=== PATIENT | female | born 1990 | race Caucasian/White ===

== ENCOUNTER 2022-07-14 06:53 | Outpatient (CLI) | payer MEDICAID, SELFPAY ==
--- NOTE | 2022-07-14 07:13 | US_ITS ---
WS: [id number] EARLY OBSTETRICAL ULTRASOUND (<14 WEEKS). HISTORY: DATING COMPARISON: None available. Single intrauterine gestational sac is identified. Cardiac activity at 171 BPM. Brillion-rump length mega sures 3.9 cm which corresponds to a gestation of 10w5d. Normal-appearing yolk sac and amnion demonstr ated. No subchorionic hemorrhage. No free fluid. Ovaries are not identified. No adnexal mass. US/US OB <= 14 weeks fetus [id number] IMPRESSION: 1. Single intrauterine gestation of 10 weeks 5 days with an EDC of 02/04/2023. 2. Normal cardiac activity.
== END 2022-07-14 06:54 | disposition home or self-care (01) ==
LOC: RAD 06:53
PROVIDERS: Visit Provider Family Medicine
DX: Z36.87 Encounter for antenatal screening for uncertain dates (principal); Z3A.10 10 weeks gestation of pregnancy
CPT/HCPCS: 76801

== ENCOUNTER 2022-09-20 06:01 | Outpatient (CLI) | payer MEDICAID, SELFPAY ==
--- NOTE | 2022-09-20 | US_ITS ---
WS: [id number] OBSTETRICAL ULTRASOUND COMPLETE HISTORY: ANATOMY SCAN COMPARISON: 07/14/2022 Single intrauterine gestation in transverse presentation. head on maternal LEFT. Cervix is Closed and normal length. Cervical length is 4.7 cm. Normal amount of amniotic fluid surrounds the fetus. Placenta: Lateral and fundal. Placenta grade 1 Heart: 150 BPM. Four chambers are identified. RIGHT and LEFT outflow tracts are unremarkable. Anatomy: Intracranial structures and spine are normal. kidneys, stomach and urinary bladd er are unremarkable. Abdominal wall, three-vessel cord and cord insertion site are normal. 4 extremities are present. profile: Unremarkable. Gender: Female. measurements: BPD = 4.8 cm = 20w3d; HC = 17.9 cm = 20w3d; AC = 15.0 cm = 20w1d; FL = 3.4 cm = 20w5d; EFW: 355 g. Not available. Biometry is internally concordant. AGA by ultrasound: 20w3d VELASQUEZ by ultrasound: 02/04/2023 US/US OB >= 14 weeks fetus [id number] IMPRESSION: 1. Single intrauterine gestation of 20w3d with an VELASQUEZ of 02/04/2023. Appropria te growth since the first trimester ultrasound. 2. Unremarkable screening survey of anatomy.
== END 2022-09-20 06:02 | disposition home or self-care (01) ==
LOC: RAD 06:02
PROVIDERS: PCP Family Medicine; Visit Provider Family Medicine
DX: Z36.89 Encounter for other specified antenatal screening (principal); Z3A.20 20 weeks gestation of pregnancy
CPT/HCPCS: 76805

== ENCOUNTER 2023-01-19 03:39 | Inpatient (IN) | payer BC, MEDICAID, SELFPAY ==
[2023-01-19] VITALS (60 sets, daily range): BP systolic 103–216; BP diastolic 56–95; PULSE 72–136; RESP 15–18; TEMP 36.4–37.2; O2SAT 98–99; BMI 26.2
[2023-01-19 03:52] LABS: Basophils % 0.1 %; Eosinophils # 0.3 10^3/uL (0.0-0.8); Eosinophils % 3.2 %; Hemoglobin 11.9 g/dL (11.5-15.3); Lymphocytes # 1.9 10^3/uL (0.8-4.8); Lymphocytes % 23.1 %; Mean Corpuscular HGB Conc 33.1 g/dL (30.0-36.0); Mean Corpuscular Hemoglobin 29.9 pg (28.0-34.0); Mean Corpuscular Volume 90.5 fl (81-99); Mean Platelet Volume 9.4 fL (7.4-10.4); Monocytes # 0.7 10^3/uL (0.2-0.9); Monocytes % 8.4 %; Neutrophils # 5.28 10^3/uL (1.8-7.7); Neutrophils % 64.7 %; Nucleated Red Blood Cells % 0 %; Platelet Count 245 10^3/cmm (130-400); Red Blood Count 3.98 10^6/uL (4.1-5.3); White Blood Count 8.2 10^3/uL (4.0-10.0)
[2023-01-19] MEDS: lactated ringers 1,000 ML 999 ML IV ×3 (03:56→07:38)
--- NOTE | 2023-01-19 04:56 | ANES.PREANE2 ---
Pre-Anesthetic Assessment Height/Weight: Height 1.6 m Weight 67.132 kg Pulse Resp BP 100 17 108/77 01/19/23 03:45 01/19/23 03:25 01/19/23 03:45 Preop Diagnosis: Labor pain epidural Familial anesthetic complications: none Was Beta Erasmo taken within 24 hours: N/A Was Clonidine taken within 24 hours: N/A Social No alcohol and No tobacco Exam alert, oriented x 3, clear to auscultation bilaterally and regular rate & rhythm Airway Submandibular: within normal limits Cervical ROM: within normal limits Mallampati: Class II Dentition: full Pulmonary None reported CV/HEM Anemia None reported Hepatic None reported GI Gastroesophageal Reflux Disease Metabolic None reported Musc/skel None reported Neuropsych None reported Anesthetic Plan ASA status: 2 Anesthesia: Regional (specify below) Risk of > 500 ml blood loss (7ml/kg in children): No Medications/Allergies Allergies Allergy/AdvReac Type Severity Reaction Status Date / Time No Known Allergies Allergy Verified 01/19/23 04:30 Current Medications Generic Name Dose Route Start Last Admin Trade Name Freq PRN Reason Stop Dose Admin Lactated Ringer's 1,000 mls @ 999 mls/hr 01/19/23 03:25 01/19/23 03:56 Lactated Ringers IV 999 mls/hr .Q1H1M PRN Administration See label comments PFSH Anesthesia Female Reproductive History : 3 Data Anesthesia 01/19/23 03:40 Short CBC 01/19/23 Range/Units 03:40 WBC 8.2 (4.0-10.0) 10^3/uL Hgb 11.9 (11.5-15.3) g/dL Hct 36.0 L (37.0-47.0) % MCV 90.5 (81-99) fl Plt Count 245 (130-400) 10^3/cmm Neut % (Auto) 64.7 % Neut # (Auto) 5.28 (1.8-7.7) 10^3/uL Cardiac Studies: No Data to Display
--- NOTE | 2023-01-19 05:23 | P.ANES_ITS ---
Anesthesia Procedures Procedure/Date: 01/19/23 epidural Procedure Narrative: epidural complete, bolus given, epidural pump initiated with UKE OPERATOR education given, vitals taken during procedure and satisfactory throughout, patient admits to decrease pain, report of procedure to OB RN Epidural: Time Out Performed: Yes Consents Signed: Procedure Consent Consent: requested by attending/covering physician, from patient, risks and benefits reviewed and patient agrees to proceed Lumbar Level: L3-L4 Epidural position: sitting Epidural procedure: sterile prep of area, 1% lidocaine to numb the area (3 mL), 18 g needle, negative for paresthesia passed, neg for paresthesia, test dose given, 1.5% xylocaine 1:200k epi (5 mL), 0.2% Ropivacaine bolus ml (5 mL), placed PCEA, no systemic response, sterile dressing applied, L.U.D. no apparent complications and 0.2% Ropiavacaine @ mls/hr (13 mL/hr)
[2023-01-19] MEDS: dextrose 5%-lactated ringers 1,000 ML 125 ML IV (06:33)
--- NOTE | 2023-01-19 07:27 | P.HP_ITS ---
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 LOF started around 2am. She complained of mild contractions on admission. She has a history of a quick labor with her last and so came to hospital right away. She reports good movement, denies vaginal bleeding. care has been good starting in the first trimester. Present Details : 3 Para: 2 Labs Blood type OB HPI: A (+) positive Rubella: Immune RPR: Negative GBS: Negative HBsAG: Negative Other Lab Information: Antibody screen negative GC/Chlamydia negative UCx normal Hep C ab negative HIV negative 1hr GTT passed Genetic testing declined Due for repeat pap smear - pap smear January 2020 NILM Review of Systems Const: Denies: fever(s) or chills Resp: Denies: dyspnea or productive cough : Denies: genital lesions or vaginal bleeding Medications/Allergies Home Medications Medication Instructions Recorded Confirmed Last Taken Type 1+1 W/Iron 1 tab PO DAILY 01/19/23 01/19/23 1 Day Ago History ~01/18/23 aspirin 81 mg capsule 81 mg PO DAILY 01/19/23 01/19/23 1 Day Ago History ~01/18/23 ferrous sulfate 325 mg (65 mg 325 mg PO DAILY 01/19/23 01/19/23 1 Day Ago Hist ory iron) tablet (Iron (ferrous ~01/18/23 sulfate)) loratadine 10 mg PO DAILY 01/19/23 01/19/23 1 Day Ago History ~01/18/23 Allergies Allergy/AdvReac Type Severity Reaction Status Date / Time No Known Allergies Allergy Verified 01/19/23 04:30 History History History 3 Term 2 0 Miscarriages/Ectopic 0 Living Children 2 Vitals/I&O/Wt Last Vital Signs Temp 98.0 F 01/19/23 06:40 Pulse 102 H 01/19/23 07:22 Resp 17 01/19/23 03:25 BP 121/73 01/19/23 07:22 Pulse Ox 98 06/30/23 05:24 O2 Del Method Room Air 01/19/23 05:15 01/18/23 01/19/23 01/19/23 22:59 06:59 14:59 Intake Total 1000 / 1000 Output Total 375 / 375 Balance 625 / 625 Weight last 48 hrs Weight 148 lb Physical Exam Const: COMMON NORMALS: no acute distress, healthy appearing and alert Resp: COMMON NORMALS: normal respiratory effort, No retractions and clear to auscultation bilaterally Cardio: COMMON NORMALS: regular rate, regular rhythm, S1 normal heart sound present, S2 normal heart sound present and No murmurs present (Cardio) Extremity: OTHER: No pretibial edema, 1+ pitting edema of bilateral feet Urinary Catheter Management: Moran: Cath Placed During This Visit: yes Reason for Continuing Indwelling Catheter: Required Immobilization for Trauma or Surgery or Anesthesia Urinary Catheter Date of Insertion: 01/19/23 Urinary Catheter Time of Insertion: 05:55 Data 01/19/23 03:40 A&P Assessment and plan (1) Rupture of membranes with clear amniotic fluid: (2) Term : Plan 32 yo at 37w5d by 10wk US with PMHx pre-eclampsia presenting for ROM and contractions. Admit for labor. Category 1 FHT on admission. Routine CBC. May have epidural when desired. Expectant management. Attestations Medical Necessity Statement*: Deanne Kelley's hospital stay will require greater than 2 midnights for routine labor and delivery and care. Coding Level of Care Code Acute Code for Chg Fwd Diagnoses Rupture of membranes with clear amniotic fluid Term Z34.90
[2023-01-19] MEDS: hyDROXYzine 25 mg Capsule 50 MG PO (08:02)
[2023-01-19] MEDS: lidocaine 2% INJ 20 mL INJECTION (10:43)
--- NOTE | 2023-01-19 11:02 | P.PCNOB_ITS ---
Delivery Note: Date of delivery: January 19, 2023 Pre-delivery diagnoses: Term Spontaneous Rupture of Membranes Spontaneous labor Post-delivery diagnoses: Delivery of viable female Procedure: Spontaneous vaginal delivery Delivering Physician: Roz Browning DO Estimated blood loss (mL): 125 Pre-Delivery Course: Admitted with SROM at home at approximately 2 AM on 01/19/2023 with contractions starting shortly after. Admitted with SVE 370/-3. She received epidural for anesthesia and appropriately progressed to complete. heart tracing notable for intermittent tachycardia throughout labor with normal maternal temperature throughout. Delivery: Patient progressed to complete. Patient placed in lithotomy position. Patient pushed with adequate effort. Head delivered in TYRONE position, no nuchal cord was present. Shoulders and rest of body delivered without difficulty with epidural anesthesia. Mouth and nares bulb suctioned. Cord clamped and cut after 1 minute delay. placed on maternal abdomen. Placenta spontaneously delivered and noted to be intact. Pitocin started. Fundus was noted to be firm. The vagina and cervix were inspected and second-degree midline laceration continuous with a V- shaped pattern was noted. Repaired with 3-0 Vicryl suture with adequate hemostasis noted following repair. Fundus was again noted to be firm. Female born at 10:32 AM with 9/9 weighing 7 pounds 10 ounces and measuring 21 in length Placenta noted to be intact with centrally inserted umbilical cord and three- vessel cord. Complications: Maternal none Infant none History History History 3 Term 2 0 Miscarriages/Ectopic 0 Living Children 2 Coding Level of Care Code Acute Code for Chg Fwd Diagnoses
[2023-01-19] MEDS: ketorolac 30 mg/mL INJ IVP (11:43)
[2023-01-19] MEDS: lanolin oint 7 gm 1 APPLIC TOPICAL (14:59)
[2023-01-19] MEDS: benzocaine-menthol 78 gm Canister 1 SPRAY TOPICAL (14:59)
--- NOTE | 2023-01-19 15:10 | PC.NURSE ---
ambulated to OB9. oriented to room and call light. proud parent pack and feeding log discussed.
[2023-01-19] MEDS: docusate sodium 100 mg Capsule PO (18:22)
[2023-01-19] MEDS: ibuprofen 800 mg tablet PO (21:29)
[2023-01-20 00:14] VITALS: BP 106/68; PULSE 97; RESP 16; O2SAT 97
[2023-01-20 00:33] LABS: Hematocrit 29.5 % (37.0-47.0); Hemoglobin 9.8 g/dL (11.5-15.3); Mean Corpuscular HGB Conc 33.2 g/dL (30.0-36.0); Mean Corpuscular Hemoglobin 30.3 pg (28.0-34.0); Mean Corpuscular Volume 91.3 fl (81-99); Mean Platelet Volume 9.6 fL (7.4-10.4); Platelet Count 208 10^3/cmm (130-400); Red Blood Count 3.23 10^6/uL (4.1-5.3); Red Cell Distribution Width 15.4 % (12.1-15.1); White Blood Count 11.5 10^3/uL (4.0-10.0)
[2023-01-20 04:02] VITALS: BP 120/79; PULSE 96; RESP 15
[2023-01-20] MEDS: prenatal vitamin Capsule 1 CAP PO (09:24)
[2023-01-20] MEDS: docusate sodium 100 mg Capsule PO (09:24)
[2023-01-20] MEDS: ibuprofen 800 mg tablet PO (09:24)
[2023-01-20 09:26] VITALS: BP 116/76; PULSE 103; RESP 17; TEMP 36.4; O2SAT 96
--- NOTE | 2023-01-20 10:31 | P.DS_ITS ---
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 Admitted with SROM at home at approximately 2 AM on 01/19/2023 with contractions starting shortly after.? Admitted with SVE /3.? She received epidural for anesthesia and appropriately progressed to complete.? heart tracing notable for intermittent tachycardia throughout labor with normal maternal temperature throughout. Delivery:?? Patient progressed to complete. Patient placed in lithotomy position. Patient pushed with adequate effort. Head delivered in TYRONE position, no nuchal cord was present. Body cord around left foot present. Shoulders and rest of body delivered without difficulty with epidural anesthesia. Mouth and nares bulb suctioned. Cord clamped and cut after 1 minute delay. placed on maternal abdomen. Placenta spontaneously delivered and noted to be intact. Pitocin started. Fundus was noted to be firm. The vagina and cervix were inspected and second-degree midline laceration continuous with a V-shaped pattern was noted.? Repaired with 3-0 Vicryl suture with adequate hemostasis noted following repair.? Fundus was again noted to be firm. Female born at 10:32 AM with 9/9 weighing 7 pounds 10 ounces and measuring 21 in length Placenta noted to be intact with centrally inserted umbilical cord and three- vessel cord. Complications: Maternal none ? Infant none Course: Patient underwent on 01/19/2023. course was uncomplicated. Following delivery patient ambulated well, tolerated a normal diet without nausea or vomiting. Pain was well controlled on PO medications, breast-feeding with formula supplementation, no leg/calf pain, no calf/leg swelling, normal urination, passing gas without issue. Vaginal bleeding thin lochia and less than a period. labs significant for hemoglobin of 9.8 from 11.9 on admission. She is continued on her home iron supplementation. control was discussed and patient will consider and discuss on follow-up. Follow-up planned for 2 and 6 weeks . Warning signs for endometritis, pre-eclampsia, DVT/PE, mastitis were reviewed, discussed additional warning signs including increased vaginal bleeding, worsening abdominal pain. Pelvic rest and activity precautions reviewed as well. She is discharged on 01/20/2023 in stable condition. Information Peripartum Data: Infant Delivery Method: Vaginal Physical Exam Const: COMMON NORMALS: no acute distress, healthy appearing and alert Resp: COMMON NORMALS: normal respiratory effort, No retractions and clear to auscultation bilaterally AUSCULTATION: clear to auscultation bilaterally Cardio: COMMON NORMALS: regular rate, regular rhythm, S1 normal heart sound present, S2 normal heart sound present and No murmurs present (Cardio) RATE: regular rate RHYTHM: regular rhythm HEART SOUNDS: S1 normal heart sound present and S2 normal heart sound present : OTHER: Uterine fundus firm and below the umbilicus Extremity: OTHER: No pretibial edema, 1+ pitting edema of bilateral feet Neuro: SENSORIUM/ORIENTATION: Yes alert Urinary Catheter Management: Moran: Cath Placed During This Visit: yes, but has since been removed by the nurse Reason for Continuing Indwelling Catheter: Decision to DC Catheter Urinary Catheter Date of Insertion: 01/19/23 Urinary Catheter Time of Insertion: 05:55 Date Urinary Catheter Removed: 01/19/23 Time Urinary Catheter Discontinued: 09:35 History History History 2 3 Term 3 0 Miscarriages/Ectopic 0 Living Children 3 Discharge Data Studies Completed and Pending Laboratory Results WBC 11.5 10^3/uL (4.0-10.0) H 01/20/23 00:09 RBC 3.23 10^6/uL (4.1-5.3) L 01/20/23 00:09 Hgb 9.8 g/dL (11.5-15.3) L 01/20/23 00:09 Hct 29.5 % (37.0-47.0) L 01/20/23 00:09 MCV 91.3 fl (81-99) 01/20/23 00:09 MCH 30.3 pg (28.0-34.0) 01/20/23 00:09 MCHC 33.2 g/dL (30.0-36.0) 01/20/23 00:09 RDW 15.4 % (12.1-15.1) H 01/20/23 00:09 Plt Count 208 10^3/cmm (130-400) 01/20/23 00:09 MPV 9.6 fL (7.4-10.4) 01/20/23 00:09 Neut % (Auto) 64.7 % 01/19/23 03:40 Lymph % (Auto) 23.1 % 01/19/23 03:40 Barren % (Auto) 8.4 % 01/19/23 03:40 Eos % (Auto) 3.2 % 01/19/23 03:40 Baso % (Auto) 0.1 % 01/19/23 03:40 Neut # (Auto) 5.28 10^3/uL (1.8-7.7) 01/19/23 03:40 Lymph # (Auto) 1.9 10^3/uL (0.8-4.8) 01/19/23 03:40 Barren # (Auto) 0.7 10^3/uL (0.2-0.9) 01/19/23 03:40 Eos # (Auto) 0.3 10^3/uL (0.0-0.8) 01/19/23 03:40 Baso # (Auto) 0.0 10^3/uL (0.0-0.1) 01/19/23 03:40 Nucleated RBC % (auto) 0 % 01/19/23 03:40 Nucleated RBCs # 0.0 /100WBC 01/19/23 03:40 Vitals Last Vital Signs Temp 98.0 F 01/19/23 20:35 Pulse 96 01/20/23 04:02 Resp 15 01/20/23 04:02 BP 120/79 01/20/23 04:02 Pulse Ox 97 01/20/23 00:14 O2 Del Method Room Air 01/20/23 04:02 Discharge Plan Discharge Patient Disposition: Home Prescriptions: New docusate sodium 100 mg Capsule 100 mg PO BID Qty: 60 0RF ibuprofen 800 mg Tablet 800 mg PO TID Qty: 90 0RF Continued loratadine 10 mg PO DAILY Iron (ferrous sulfate) 325 mg (65 mg iron) Tablet 325 mg PO DAILY 1+1 W/Iron 1 tab PO DAILY Discontinued aspirin 81 mg Capsule 81 mg PO DAILY Discharge Diet: Usual diet Discharge Activity: Increase activity as tolerated Patient Instructions: Depression (DC), Bleeding (DC), Preeclampsia and Eclampsia After Delivery (GEN), Hemorrhage (DC), OB Discharge Report, OB Anesthesia Instructions, OB Food/Drug Interaction Guide, Opioid Safety, OB Home Care, OB Proud Parent Packet Activity Restrictions/Additional Instructions: Pelvic rest for 6 weeks. Follow-up with Dr. Browning at 2 and 6 weeks . 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
[2023-01-20 14:45] VITALS: BP 123/83; PULSE 98; RESP 14; TEMP 36.9; O2SAT 98
[2023-01-20 14:56] VITALS: BP 123/83; PULSE 98; RESP 14; TEMP 36.9; O2SAT 98
== END 2023-01-20 14:56 | disposition home or self-care (01) | DRG 807 ==
LOC: OPOB 03:40 → OBGYN 03:40
PROVIDERS: Admitting Provider Family Medicine; PCP Family Medicine; Visit Provider Family Medicine
DX: O76 Abnormality in fetal heart rate and rhythm complicating labor and delivery (principal); Z37.0 Single live birth; O70.1 Second degree perineal laceration during delivery; Z3A.37 37 weeks gestation of pregnancy
CPT/HCPCS: 36415; 51702; 59025; 59409; 85025; 85027; 96374; 99211; J1885; J2795; J7040; J7120; J7121

== ENCOUNTER 2023-01-24 17:13 | Observation (INO) | payer BC, MEDICAID, SELFPAY ==
[2023-01-24] VITALS (13 sets, daily range): BP systolic 132–170; BP diastolic 83–118; PULSE 75–85; RESP 16–18; TEMP 36.3–36.7; O2SAT 96–99; BMI 24.7
--- NOTE | 2023-01-24 18:19 | ECG_ITS ---
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 Measurements Intervals [place] Rate: 71 P: 58 OH: 167 QRS: 65 QRSD: 81 T: 70 QT: 364 QTc: 397 Interpretive Statements SINUS RHYTHM No previous ECG available for comparison Electronically Signed On 01-25-2023 12:16:56 CDT by Brenden Reeves M.D. [id number]
[2023-01-24 18:26] LABS: Basophils % 0.5 %; Eosinophils # 0.3 10^3/uL (0.0-0.8); Eosinophils % 4.3 %; Hematocrit 37.7 % (37.0-47.0); Hemoglobin 12.3 g/dL (11.5-15.3); Lymphocytes # 1.5 10^3/uL (0.8-4.8); Lymphocytes % 20.7 %; Mean Corpuscular HGB Conc 32.6 g/dL (30.0-36.0); Mean Corpuscular Hemoglobin 30.1 pg (28.0-34.0); Mean Corpuscular Volume 92.4 fl (81-99); Mean Platelet Volume 9.1 fL (7.4-10.4); Monocytes # 0.6 10^3/uL (0.2-0.9); Monocytes % 8.2 %; Neutrophils # 4.88 10^3/uL (1.8-7.7); Nucleated Red Blood Cells % 0 %; Platelet Count 261 10^3/cmm (130-400); Red Blood Count 4.08 10^6/uL (4.1-5.3); Red Cell Distribution Width 14.5 % (12.1-15.1); White Blood Count 7.4 10^3/uL (4.0-10.0)
[2023-01-24 18:44] LABS: Alanine Aminotransferase 166 U/L (0-33); Albumin Level 3.6 g/dL (3.5-5.2); Alkaline Phosphatase 125 U/L (35-105); Anion Gap 17.2 (5-19); Aspartate Amino Transferase 102 U/L (0-32); Blood Urea Nitrogen 15 mg/dL (6-20); Calcium 8.5 mg/dL (8.5-10.5); Carbon Dioxide 21 mmol/L (22-29); Chloride 108 mmol/L (98-107); Globulin 2.7 g/dL (1.3-4.6); Glomerular Filtration Rate 84.2 mL/min (90-130); Glucose 84 mg/dL (65-115); Lactate Dehydrogenase 333 U/L (135-214); Osmolality Calculated 294 mOsm/kg (285-295); Potassium 4.2 mmol/L (3.5-5.1); Sodium 142 mmol/L (136-145); Total Bilirubin 0.2 mg/dL (0.15-1.2); Total Protein 6.3 g/dL (6.6-8.7)
[2023-01-24 19:01] LABS: Add Urine Microscopic? NO; Charge for UA Resulting for Rev
[2023-01-24 19:05] LABS: Bilirubin Urine Neg (Negative); Blood Urine Neg (Negative); Glucose Urine UA Norm (Normal); Ketones Urine Negative (Negative); Leukocyte Esterase Urine Negative (Negative); Nitrate Urine Negative (Negative); Protein Urine Neg (Negative); Urine Appearance Clear (CLEAR); Urine Color Light yellow (Yellow); Urobilinogen Urine Norm (Negative); pH Urine 7 (5-7)
--- NOTE | 2023-01-24 20:00 | W.ED.RECABL ---
HPI - Recheck/Abnormal Lab/Rx General: Chief Complaint: Recheck/Abnormal Lab/Rx Stated Complaint: bp issues, gave sunday Time Seen by Provider: 01/24/23 18:11 History of Present Illness: This patient is a 32 year old presenting with concerns for elevated BP. She delivered on 01/19 after an uneventful . She has since developed elevated BP, intermittent, mild headache, ankle swelling and generalized abdominal pain that is currently resolved. She did have pre-eclampsia with her first but never required treatment. She has never been on blood pressure medications. Her OB is Dr. Browning. Physical Exam Const: COMMON NORMALS: no acute distress, patient oriented x3, no limitations and alert GENERAL APPEARANCE: cooperative and comfortable HENMT: HEAD & SCALP: normal to inspection FACE & SINUS: normal facial exam Eye: GENERAL EYE: appearance normal, both eyes and all related structures Neck/C-Spine: COMMON NORMALS: supple, no meningeal signs and no JVD Chest: COMMONS NORMALS: normal inspection of the chest Resp: COMMON NORMALS: normal respiratory effort, No use of accessory muscles and clear to auscultation bilaterally AUSCULTATION: clear to auscultation bilaterally Cardio: COMMON NORMALS: no JVD, regular rate, regular rhythm and No murmurs present (Cardio) RATE: regular rate RHYTHM: regular rhythm GI: COMMON NORMALS: Normal to inspection, nondistended, normoactive bowel sounds present, Soft to palpation and non-tender INSPECTION: Yes normal to inspection AUSCULTATION: Yes normoactive bowel sounds PALPATION: Yes Soft to palpation Back/Pelvis: COMMON NORMALS: thoracic and lumbar spine normal to inspection Extremity: COMMON NORMALS: normal to inspection OTHER: 1 - 2 + edema lower extremities Neuro: COMMON NORMALS: patient oriented x3, moves all extremities, no focal motor deficits and no sensory deficits noted SENSORIUM/ORIENTATION: Yes alert MENINGEAL SIGNS: Yes no meningeal signs Psych: COMMON NORMALS: mental status grossly normal, cooperative and normal affect Skin: COMMON NORMALS: no rashes or lesions noted and turgor normal GENERAL SKIN EXAM: no rashes or lesions noted and turgor normal Course Vital Signs: Vital signs: Vital Signs Temperature 97.8 F 01/24/23 17:41 Pulse Rate 82 01/24/23 21:01 Respiratory Rate 18 01/24/23 20:16 Blood Pressure 155/98 01/24/23 21:01 Pulse Oximetry 96 01/24/23 20:16 Oxygen Delivery Me thod Room Air 01/24/23 20:16 MDM - Recheck/Abnormal Lab/Rx Medical Decision Making Elevated blood pressure post . LFTs elevated somewhat. urine normal with no proteinuria. platelets normal. BP markedly elevated in the moderate to severe range. Discussed with Dr. Browning and she consulted with Dr. Prakash. They will admit her for BP control and magnesium. Labetalol given in the ED. Lab Data 01/24/23 18:11 01/24/23 18:11 Laboratory Results WBC 7.4 10^3/uL (4.0-10.0) 01/24/23 18:11 RBC 4.08 10^6/uL (4.1-5.3) L 01/24/23 18:11 Hgb 12.3 g/dL (11.5-15.3) 01/24/23 18:11 Hct 37.7 % (37.0-47.0) 01/24/23 18:11 MCV 92.4 fl (81-99) 01/24/23 18:11 MCH 30.1 pg (28.0-34.0) 01/24/23 18:11 MCHC 32.6 g/dL (30.0-36.0) 01/24/23 18:11 RDW 14.5 % (12.1-15.1) 01/24/23 18:11 Plt Count 261 10^3/cmm (130-400) 01/24/23 18:11 MPV 9.1 fL (7.4-10.4) 01/24/23 18:11 Neut % (Auto) 66.0 % 01/24/23 18:11 Lymph % (Auto) 20.7 % 01/24/23 18:11 Jessamine % (Auto) 8.2 % 01/24/23 18:11 Eos % (Auto) 4.3 % 01/24/23 18:11 Baso % (Auto) 0.5 % 01/24/23 18:11 Neut # (Auto) 4.88 10^3/uL (1.8-7.7) 01/24/23 18:11 Lymph # (Auto) 1.5 10^3/uL (0.8-4.8) 01/24/23 18:11 Jessamine # (Auto) 0.6 10^3/uL (0.2-0.9) 01/24/23 18:11 Eos # (Auto) 0.3 10^3/uL (0.0-0.8) 01/24/23 18:11 Baso # (Auto) 0.0 10^3/uL (0.0-0.1) 01/24/23 18:11 Nucleated RBC % (auto) 0 % 01/24/23 18:11 Nucleated RBCs # 0.0 /100WBC 01/24/23 18:11 PT 12.40 SECONDS (12.1-14.9) 01/24/23 18:11 INR 0.90 (0.8-1.2) 01/24/23 18:11 Sodium 142 mmol/L (136-145) 01/24/23 18:11 Potassium 4.2 mmol/L (3.5-5.1) 01/24/23 18:11 Chloride 108 mmol/L (98-107) H 01/24/23 18:11 Carbon Dioxide 21 mmol/L (22-29) L 01/24/23 18:11 Anion Gap 17.2 (5-19) 01/24/23 18:11 BUN 15 mg/dL (6-20) 01/24/23 18:11 Creatinine 0.8 mg/dL (0.5-0.9) 01/24/23 18:11 GFR Calculation 84.2 mL/min (90-130) L 01/24/23 18:11 Glucose 84 mg/dL (65-115) 01/24/23 18:11 Calculated Osmolality 294 mOsm/kg (285-295) 01/24/23 18:11 Calcium 8.5 mg/dL (8.5-10.5) 01/24/23 18:11 Total Bilirubin 0.2 mg/dL (0.15-1.2) 01/24/23 18:11 AST 102 U/L (0-32) H 01/24/23 18:11 ALT 166 U/L (0-33) H 01/24/23 18:11 Alkaline Phosphatase 125 U/L (35-105) H 01/24/23 18:11 Lactate Dehydrogenase 333 U/L (135-214) H 01/24/23 18:11 Total Protein 6.3 g/dL (6.6-8.7) L 01/24/23 18:11 Albumin 3.6 g/dL (3.5-5.2) 01/24/23 18:11 Globulin 2.7 g/dL (1.3-4.6) 01/24/23 18:11 Urine Color Light yellow (Yellow) 01/24/23 18:34 Urine Appearance Clear (CLEAR) 01/24/23 18:34 Urine pH 7 (5-7) 01/24/23 18:34 Ur Specific Peel 1.010 (1.005-1.030) 01/24/23 18:34 Urine Protein Neg (Negative) 01/24/23 18:34 Urine Glucose (UA) Norm (Normal) 01/24/23 18:34 Urine Ketones Negative (Negative) 01/24/23 18:34 Urine Blood Neg (Negative) 01/24/23 18:34 Urine Nitrate Negative (Negative) 01/24/23 18:34 Urine Bilirubin Neg (Negative) 01/24/23 18:34 Urine Urobilinogen Norm mg/dL (Negative) 01/24/23 18:34 Ur Leukocyte Esterase Negative (Negative) 01/24/23 18:34 Discharge Plan Discharge Patient Disposition: Admitted As Inpatient Admit Provider: Fidel Prakash Clinical Impression: Pre-eclampsia in period Condition: Stable Coding Level of Care Code 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
[2023-01-24] MEDS: labetalol 5 mg/mL SDV 20mL 20 MG IVP (20:29)
[2023-01-24] MEDS: acetaminophen 500 mg Tablet 1000 MG PO (22:43)
[2023-01-24] MEDS: dextrose 5%-lactated ringers 1,000 ML 75 ML IV (22:46)
[2023-01-24] MEDS: magnesium sulfate premix 4 GM/100 ML PREMIX IV (22:51)
[2023-01-24] MEDS: magnesium sulfate premix 20 GM/500 ML BAG IV (22:51)
[2023-01-24 23:18] LABS: Urine Creatinine 16 mg/dL (28-217); Urine Protein Random 10 mg/dL
[2023-01-24 23:23] LABS: UPRO/UCREAT Ratio 0.63 mg/mg CR
[2023-01-25] VITALS (157 sets, daily range): BP systolic 107–159; BP diastolic 68–100; PULSE 68–92; TEMP 35.8–36.9; O2SAT 88–100
[2023-01-25 05:37] LABS: Magnesium Level (OB Only) 6.3 mg/dL (5.0-7.5)
[2023-01-25] MEDS: acetaminophen 500 mg Tablet 1000 MG PO ×4 (06:32→23:03)
[2023-01-25] MEDS: dextrose 5%-lactated ringers 1,000 ML 75 ML IV (07:32)
[2023-01-25] MEDS: magnesium sulfate premix 20 GM/500 ML BAG IV (07:32)
[2023-01-25] MEDS: ondansetron 2 mg/ML SDV 2 mL 4 MG IVP ×2 (07:53→18:53)
[2023-01-25 12:15] LABS: Magnesium Level (OB Only) 7.3 mg/dL (5.0-7.5)
--- NOTE | 2023-01-25 12:34 | PM.PN ---
Subjective Subjective: Mrs. Kelley 32 y/o S/P vaginal delivery with pospartum preeclampsia Vitals/I&O/Wt Last Vital Signs Temp 96.8 F L 01/26/23 04:47 Pulse 85 01/26/23 04:47 Resp 18 01/24/23 20:16 BP 133/93 01/26/23 04:47 Pulse Ox 96 01/26/23 02:32 O2 Del Method Room Air 01/24/23 21:50 01/25/23 01/26/23 01/26/23 22:59 06:59 14:59 Intake Total 500 / 1591.667 Output Total 1485 / 3185 325 / 3510 Balance -1485 / -2093.333 175 / -1918.333 Weight last 48 hrs Weight 63.503 kg Weight 63.503 kg Physical Exam Narrative: GA; alert and oriented x 3 HEENT: normal Breasts: engorged Nipples - skin intact Lungs; clear to auscultation Heart: regular rhythm, no murmurs. Abd: Appropriately tender. BS+. Uterine fundus below umbilicus. No Fundal Tenderness. Perineum: normal lochia. Extremities: no edema, no cyanosis, no tenderness. Urinary Catheter Management: Moran: Cath Placed During This Visit: yes, but has since been removed by the nurse Reason for Continuing Indwelling Catheter: Accurate Measurement of Urinary Output in Critically Ill Patients Urinary Catheter Date of Insertion: 01/24/23 Urinary Catheter Time of Insertion: 20:25 Date Urinary Catheter Removed: 01/25/23 Time Urinary Catheter Discontinued: 23:10 Data 01/26/23 09:39 01/26/23 09:39 A&P Assessment and plan (1) Pre-eclampsia in period: Mrs. Kelley status pos with preeclampsia. Admitted for BP control and prevention of seizure. Refers occasional headaches. Plan Plan DC home after seizure prophylaxis treatment and Bp control. Attestations Medical Necessity Statement*: per my professional opinion per admitting diagnosis Coding Level of Care Code Acute Code for Chg Fwd Diagnoses Pre-eclampsia in period O14.95
[2023-01-25 19:27] LABS: Magnesium Level (OB Only) 7.7 mg/dL (5.0-7.5)
[2023-01-26] VITALS (37 sets, daily range): BP systolic 113–140; BP diastolic 78–93; PULSE 67–110; RESP 15; TEMP 36–36.8; O2SAT 96–100
[2023-01-26] MEDS: acetaminophen 500 mg Tablet 1000 MG PO (07:46)
[2023-01-26 09:39] LABS: Glucose Urine UA Norm (Normal); Protein Urine Neg (Negative); Urine Appearance Clear (CLEAR); Urine Color Yellow (Yellow); pH Urine 6 (5-7)
[2023-01-26 09:40] LABS: Add Urine Culture? No; Add Urine Microscopic? YES; Bacteria Urine TRACE /hpf; Bilirubin Urine Neg (Negative); Blood Urine 3+ (Negative); Hyaline Casts Urine 0-4 /lpf; Ketones Urine Negative (Negative); Leukocyte Esterase Urine Trace (Negative); Mucus Urine TRACE /hpf; Nitrate Urine Negative (Negative); RBC Urine 0-4 /hpf (0-2); Squamous Epithelial Cell Urine 0-4 /hpf (0-5); Urobilinogen Urine Norm (Negative)
[2023-01-26 09:43] LABS: Urine Creatinine 76 mg/dL (28-217); Urine Protein Random 14 mg/dL
[2023-01-26 09:44] LABS: UPRO/UCREAT Ratio 0.18 mg/mg CR
[2023-01-26 09:50] LABS: Basophils % 0.3 %; Eosinophils # 0.2 10^3/uL (0.0-0.8); Eosinophils % 1.6 %; Hematocrit 45.7 % (37.0-47.0); Hemoglobin 15.2 g/dL (11.5-15.3); Lymphocytes # 1.3 10^3/uL (0.8-4.8); Lymphocytes % 13.1 %; Mean Corpuscular HGB Conc 33.3 g/dL (30.0-36.0); Mean Corpuscular Hemoglobin 30.3 pg (28.0-34.0); Mean Corpuscular Volume 91.2 fl (81-99); Mean Platelet Volume 8.5 fL (7.4-10.4); Monocytes # 0.4 10^3/uL (0.2-0.9); Monocytes % 4.5 %; Neutrophils # 7.76 10^3/uL (1.8-7.7); Neutrophils % 80.1 %; Nucleated Red Blood Cells % 0 %; Platelet Count 394 10^3/cmm (130-400); Red Blood Count 5.01 10^6/uL (4.1-5.3); Red Cell Distribution Width 14.4 % (12.1-15.1); White Blood Count 9.7 10^3/uL (4.0-10.0)
[2023-01-26 10:09] LABS: Alanine Aminotransferase 140 U/L (0-33); Albumin Level 3.7 g/dL (3.5-5.2); Alkaline Phosphatase 138 U/L (35-105); Anion Gap 15.2 (5-19); Aspartate Amino Transferase 38 U/L (0-32); Blood Urea Nitrogen 14 mg/dL (6-20); Calcium 6.7 mg/dL (8.5-10.5); Carbon Dioxide 26 mmol/L (22-29); Chloride 100 mmol/L (98-107); Globulin 3.2 g/dL (1.3-4.6); Glomerular Filtration Rate 73.5 mL/min (90-130); Glucose 94 mg/dL (65-115); Osmolality Calculated 284 mOsm/kg (285-295); Potassium 4.2 mmol/L (3.5-5.1); Sodium 137 mmol/L (136-145); Total Bilirubin 0.2 mg/dL (0.15-1.2); Total Protein 6.9 g/dL (6.6-8.7); Uric Acid 8.2 mg/dL (2.4-5.7)
--- NOTE | 2023-01-26 12:37 | PM.OBGYDC ---
Discharge Providers DIRECTOR OF CONVENTION SERVICES Date of Admission: 01/24/23 20:18 Date of Discharge: 02/08/23 Attending Provider at Admission: Fidel Prakash MD Attending Provider at Discharge: Fidel Prakash MD Primary Care Provider: Roz Browning DO Diagnoses at Discharge Discharge Diagnosis (1) Pre-eclampsia in period: Status: Acute Reason for Visit Reason for Visit: bp issues, gave sunday Brief History: Mrs. Horowitz 32 y/o female status day 5 with preeclampsia. Hospital Course Hospital Course Mrs. Horowitz 32 y/o female status day 5 came to ER with sever range BP. She was admitted for management of severe preeclampsia . She was treated with MGSO4 for 24 hours and hypertensive medication. Preclamsia labs improved and normal. Physical Exam Narrative: GA; alert and oriented x 3 HEENT: normal Breasts: engorged Nipples - skin intact Lungs; clear to auscultation Heart: regular rhythm, no murmurs. Abd: Appropriately tender. BS+. Uterine fundus below umbilicus. No Fundal Tenderness. Perineum: normal lochia. Extremities: no edema, no cyanosis, no tenderness. Urinary Catheter Management: Moran: Cath Placed During This Visit: yes, but has since been removed by the nurse Reason for Continuing Indwelling Catheter: Accurate Measurement of Urinary Output in Critically Ill Patients Urinary Catheter Date of Insertion: 01/24/23 Urinary Catheter Time of Insertion: 20:25 Date Urinary Catheter Removed: 01/25/23 Time Urinary Catheter Discontinued: 23:10 History History History 3 Term 3 0 Miscarriages/Ectopic 0 Living Children 3 Discharge Data Studies Completed and Pending Laboratory Results WBC 9.7 10^3/uL (4.0-10.0) 01/26/23 09:39 RBC 5.01 10^6/uL (4.1-5.3) 01/26/23 09:39 Hgb 15.2 g/dL (11.5-15.3) 01/26/23 09:39 Hct 45.7 % (37.0-47.0) 01/26/23 09:39 MCV 91.2 fl (81-99) 01/26/23 09:39 MCH 30.3 pg (28.0-34.0) 01/26/23 09:39 MCHC 33.3 g/dL (30.0-36.0) 01/26/23 09:39 RDW 14.4 % (12.1-15.1) 01/26/23 09:39 Plt Count 394 10^3/cmm (130-400) 01/26/23 09:39 MPV 8.5 fL (7.4-10.4) 01/26/23 09:39 Neut % (Auto) 80.1 % 01/26/23 09:39 Lymph % (Auto) 13.1 % 01/26/23 09:39 [place] % (Auto) 4.5 % 01/26/23 09:39 Eos % (Auto) 1.6 % 01/26/23 09:39 Baso % (Auto) 0.3 % 01/26/23 09:39 Neut # (Auto) 7.76 10^3/uL (1.8-7.7) H 01/26/23 09:39 Lymph # (Auto) 1.3 10^3/uL (0.8-4.8) 01/26/23 09:39 [place] # (Auto) 0.4 10^3/uL (0.2-0.9) 01/26/23 09:39 Eos # (Auto) 0.2 10^3/uL (0.0-0.8) 01/26/23 09:39 Baso # (Auto) 0.0 10^3/uL (0.0-0.1) 01/26/23 09:39 Nucleated RBC % (auto) 0 % 01/26/23 09:39 Nucleated RBCs # 0.0 /100WBC 01/26/23 09:39 PT 12.40 SECONDS (12.1-14.9) 01/24/23 18:11 INR 0.90 (0.8-1.2) 01/24/23 18:11 Sodium 137 mmol/L (136-145) 01/26/23 09:39 Potassium 4.2 mmol/L (3.5-5.1) 01/26/23 09:39 Chloride 100 mmol/L (98-107) 01/26/23 09:39 Carbon Dioxide 26 mmol/L (22-29) 01/26/23 09:39 Anion Gap 15.2 (5-19) 01/26/23 09:39 BUN 14 mg/dL (6-20) 01/26/23 09:39 Creatinine 0.9 mg/dL (0.5-0.9) 01/26/23 09:39 GFR Calculation 73.5 mL/min (90-130) L 01/26/23 09:39 Glucose 94 mg/dL (65-115) 01/26/23 09:39 Calculated Osmolality 284 mOsm/kg (285-295) L 01/26/23 09:39 Uric Acid 8.2 mg/dL (2.4-5.7) H 01/26/23 09:39 Calcium 6.7 mg/dL (8.5-10.5) L 01/26/23 09:39 Magnesium 7.7 mg/dL (5.0-7.5) H* 01/25/23 17:50 Total Bilirubin 0.2 mg/dL (0.15-1.2) 01/26/23 09:39 AST 38 U/L (0-32) H 01/26/23 09:39 ALT 140 U/L (0-33) H 01/26/23 09:39 Alkaline Phosphatase 138 U/L (35-105) H 01/26/23 09:39 Lactate Dehydrogenase 333 U/L (135-214) H 01/24/23 18:11 Total Protein 6.9 g/dL (6.6-8.7) 01/26/23 09:39 Albumin 3.7 g/dL (3.5-5.2) 01/26/23 09:39 Globulin 3.2 g/dL (1.3-4.6) 01/26/23 09:39 Urine Color Yellow (Yellow) 01/26/23 09:04 Urine Appearance Clear (CLEAR) 01/26/23 09:04 Urine pH 6 (5-7) 01/26/23 09:04 Ur Specific [place] 1.010 (1.005-1.030) 01/26/23 09:04 Urine Protein Neg (Negative) 01/26/23 09:04 Urine Glucose (UA) Norm (Normal) 01/26/23 09:04 Urine Ketones Negative (Negative) 01/26/23 09:04 Urine Blood 3+ (Negative) H 01/26/23 09:04 Urine Nitrate Negative (Negative) 01/26/23 09:04 Urine Bilirubin Neg (Negative) 01/26/23 09:04 Urine Urobilinogen Norm mg/dL (Negative) 01/26/23 09:04 Ur Leukocyte Esterase Trace (Negative) H 01/26/23 09:04 Urine RBC 0-4 /hpf (0-2) H 01/26/23 09:04 Urine WBC 5-10 /hpf (0-5) H 01/26/23 09:04 Ur Squamous Epith Cells 0-4 /hpf (0-5) H 01/26/23 09:04 Amorphous Sediment Not Reportable 01/26/23 09:04 Urine Bacteria Trace /hpf (NONE) 01/26/23 09:04 Hyaline Casts 0-4 /lpf H 01/26/23 09:04 Urine Mucus Trace /hpf 01/26/23 09:04 U Random Total Protein 14 mg/dL 01/26/23 09:04 Urine Creatinine 76 mg/dL (28-217) 01/26/23 09:04 Protein/Creatinin Ratio 0.18 mg/mg CR 01/26/23 09:04 Vitals Last Vital Signs Temp 96.8 F L 01/26/23 04:47 Pulse 85 01/26/23 04:47 Resp 18 01/24/23 20:16 BP 133/93 01/26/23 04:47 Pulse Ox 96 01/26/23 02:32 O2 Del Method Room Air 01/24/23 21:50 Discharge Plan Discharge Patient Disposition: Home Condition: Stable Prescriptions: New labetalol 100 mg tablet 100 mg PO BID Qty: 30 0RF Continued loratadine 10 mg PO DAILY Iron (ferrous sulfate) 325 mg (65 mg iron) Tablet 325 mg PO DAILY 1+1 W/Iron 1 tab PO DAILY Discharge Orders: Discharge Order (Routine); Ordered 01/26/23 Ordered By: Fidel Prakash Referrals: Roz Browning DO [Primary Care Provider] - 02/01/23 8:45 am Discharge Diet: Low Salt Discharge Activity: Limit activity as instructed Patient Instructions: Labetalol (By mouth), Preeclampsia and Eclampsia After Delivery (GEN) Discharge Attestations DIRECTOR OF CONVENTION SERVICES Time Spent in Discharge Care*: greater than 30 min Coding Level of Care Code Acute Code for Chg Fwd Diagnoses Pre-eclampsia in period O14.95
--- NOTE | 2023-01-27 18:35 | PC.NURSE ---
Pt reached out to this nurse personally regarding increasing blood pressures come time for labetalol dose. Pt reporting pressures this morning at 0600 prior to dose to be 140's/100's and within 2hrof taking medication decreasing to 130's/80's. At around 1400 this afternoon pt stated that she felt off weak and dizzy and that swelling increasing some but not as bad as before. At 1800 this evening for next dose of labetalol pt noted BP to be 161/112. This nurse called Dr Browning, pts primary Dr, to see if the pt could increase dose or if she needs to follow up in the ER. Dr Browning gave the orders to increase labetalol dose to a tablet and a half, so 150mg BID and call the clinic on Sunday for update to Dr Browning or her nurse to determine if pt should follow up sooner in office or if she can wait until prior scheduled appt on the .
== END 2023-01-26 13:36 | disposition home or self-care (01) ==
LOC: ER 20:02 → OBGYN 20:32
PROVIDERS: Emergency Medicine; Admitting Provider Obstetrics & Gynecology; Emergency Provider Emergency Medicine; PCP Family Medicine; Visit Provider Obstetrics & Gynecology
DX: O14.95 Unspecified pre-eclampsia, complicating the puerperium (principal)
CPT/HCPCS: 36415; 51702; 80053; 81001; 81003; 82570; 83615; 83735; 84156; 84550; 85025; 85610; 93005; 96365; 96374; 96375; 96376; 99285; G0378; J2405; J3475; J3490; J7121

== ENCOUNTER 2023-01-27 20:13 | Emergency (ER) | payer BC, MEDICAID, SELFPAY ==
[2023-01-27 20:20] VITALS: BP 176/106; PULSE 72; RESP 14; TEMP 36.8; O2SAT 97
--- NOTE | 2023-01-27 20:28 | ECG_ITS ---
[facility] Test Date: 2023-01-27 Pat Name: Deanne Kelley Department: Room: Gender: Female [employer] Principal: : 1990 Requested By: Doc Jimenez Order Number: [id number] Paulina MD: Harvey Carrillo M.D. Measurements Intervals [place] Rate: 64 P: 50 IL: 158 QRS: 75 QRSD: 86 T: 70 QT: 385 QTc: 400 Interpretive Statements SINUS RHYTHM Compared to ECG 01/24/2023 18:33:02 No significant changes Electronically Signed On 01-28-2023 9:43:27 CDT by Harvey Carrillo M.D. [id number]
[2023-01-27] MEDS: hyDRALAzine 20 mg/mL INJ 1 mL 5 MG IVP (20:57)
[2023-01-27 20:58] VITALS: BP 165/105; RESP 16; O2SAT 98
[2023-01-27 21:07] LABS: Basophils # 0.1 10^3/uL (0.0-0.1); Basophils % 0.5 %; Eosinophils # 0.4 10^3/uL (0.0-0.8); Hematocrit 41.6 % (37.0-47.0); Hemoglobin 13.4 g/dL (11.5-15.3); Lymphocytes # 2.8 10^3/uL (0.8-4.8); Lymphocytes % 30.4 %; Mean Corpuscular HGB Conc 32.2 g/dL (30.0-36.0); Mean Corpuscular Hemoglobin 29.9 pg (28.0-34.0); Mean Corpuscular Volume 92.9 fl (81-99); Mean Platelet Volume 8.7 fL (7.4-10.4); Monocytes # 0.9 10^3/uL (0.2-0.9); Monocytes % 9.5 %; Neutrophils # 5.16 10^3/uL (1.8-7.7); Neutrophils % 55.4 %; Nucleated Red Blood Cells % 0 %; Platelet Count 415 10^3/cmm (130-400); Red Blood Count 4.48 10^6/uL (4.1-5.3); Red Cell Distribution Width 14.2 % (12.1-15.1); White Blood Count 9.3 10^3/uL (4.0-10.0)
[2023-01-27 21:17] VITALS: BP 154/96; PULSE 74; O2SAT 97
[2023-01-27 21:31] LABS: Urine Appearance Clear (CLEAR); Urine Color Colorless (Yellow)
[2023-01-27 21:32] LABS: Add Urine Microscopic? YES; Bilirubin Urine Neg (Negative); Blood Urine 2+ (Negative); Glucose Urine UA Norm (Normal); Ketones Urine 1+ (Negative); Leukocyte Esterase Urine Trace (Negative); Nitrate Urine Negative (Negative); Protein Urine Neg (Negative); Urobilinogen Urine Norm (Negative); pH Urine 7 (5-7)
[2023-01-27 21:33] LABS: RBC Urine 0-4 /hpf (0-2); Squamous Epithelial Cell Urine 0-4 /hpf (0-5); WBC Urine 0-4 /hpf (0-5)
[2023-01-27 21:34] LABS: Bacteria Urine TRACE /hpf
[2023-01-27 21:40] LABS: Alanine Aminotransferase 79 U/L (0-33); Albumin Level 3.7 g/dL (3.5-5.2); Alkaline Phosphatase 120 U/L (35-105); Blood Urea Nitrogen 18 mg/dL (6-20); Calcium 8.7 mg/dL (8.5-10.5); Carbon Dioxide 20 mmol/L (22-29); Chloride 104 mmol/L (98-107); Globulin 2.8 g/dL (1.3-4.6); Glomerular Filtration Rate 98.3 mL/min (90-130); Glucose 98 mg/dL (65-115); Magnesium 1.9 mg/dL (1.7-2.3); NT Pro B Type Natriuretic Pept 723 pg/mL (0-125); Osmolality Calculated 286 mOsm/kg (285-295); Sodium 137 mmol/L (136-145); Total Bilirubin 0.2 mg/dL (0.15-1.2); Total Protein 6.5 g/dL (6.6-8.7)
--- NOTE | 2023-01-27 21:47 | ED_ITS ---
HPI - Chest Pain General: Chief Complaint: Chest Pain Stated Complaint: high bp Time Seen by Provider: 01/27/23 20:34 History of Present Illness: This patient is a 32 year old presenting for elevated BP. She is 9 days post and was admitted 2 days ago for post pre-eclampsia with severe range blood pressures. She was on magnesium for 24 hour and discharged yesterday afternoon on labatolol. She took a dose at 6 pm last night, 6 am this morning and 6 pm tonight. She took another 1/2 this evening at the instruction of her OB. She noted that her legs started to swell again and her BP was going up by mid afternoon today and she hasn't felt well. She started having some [facility] tight[facility] She has no prior history of HTN. She had mild pre-eclampsia with her first but didn't require treatment. No other medical history. Physical Exam Const: COMMON NORMALS: no acute distress, patient oriented x3, no limitations and alert GENERAL APPEARANCE: cooperative and comfortable HENMT: HEAD & SCALP: normal to inspection FACE & SINUS: normal facial exam Eye: GENERAL EYE: appearance normal, both eyes and all related structures Neck/C-Spine: COMMON NORMALS: supple, no meningeal signs and no JVD Chest: COMMONS NORMALS: normal inspection of the chest Resp: COMMON NORMALS: normal respiratory effort, No use of accessory muscles and clear to auscultation bilaterally AUSCULTATION: clear to auscultation bilaterally Cardio: COMMON NORMALS: no JVD, regular rate, regular rhythm and No murmurs present (Cardio) RATE: regular rate RHYTHM: regular rhythm GI: COMMON NORMALS: Normal to inspection, nondistended, normoactive bowel sounds present, Soft to palpation and non-tender INSPECTION: Yes normal to inspection AUSCULTATION: Yes normoactive bowel sounds PALPATION: Yes Soft to palpation Back/Pelvis: COMMON NORMALS: thoracic and lumbar spine normal to inspection Extremity: COMMON NORMALS: normal to inspection Neuro: COMMON NORMALS: patient oriented x3, moves all extremities, no focal motor deficits and no sensory deficits noted SENSORIUM/ORIENTATION: Yes alert MENINGEAL SIGNS: Yes no meningeal signs Psych: COMMON NORMALS: mental status grossly normal, cooperative and normal affect Skin: COMMON NORMALS: no rashes or lesions noted and turgor normal GENERAL SKIN EXAM: no rashes or lesions noted and turgor normal Course Vital Signs: Vital signs: Vital Signs Temperature 98.2 F 01/27/23 20:20 Pulse Rate 84 01/28/23 00:51 Respiratory Rate 16 01/28/23 00:51 Blood Pressure 120/97 01/28/23 00:51 Pulse Oximetry 97 01/28/23 00:51 Oxygen Delivery Me thod Room Air 01/27/23 21:17 MDM - Chest Pain Medical Decision Making BP elevated again - started going up 24 hours after discharge from the hospital in spite of good compliance with her medicine. EKG normal. Will recheck labs. Will give a dose of hydralazine to try to control BP. Discussed with Dr Browning. After a second dose of hydralazine the BP stayed down in a good range and the patient was discharged home. Increased dose of labetalol - 200 mg BID. Lab Data 01/27/23 20:57 01/27/23 20:57 Laboratory Results WBC 9.3 10^3/uL (4.0-10.0) 01/27/23 20:57 RBC 4.48 10^6/uL (4.1-5.3) 01/27/23 20:57 Hgb 13.4 g/dL (11.5-15.3) 01/27/23 20:57 Hct 41.6 % (37.0-47.0) 01/27/23 20:57 MCV 92.9 fl (81-99) 01/27/23 20:57 MCH 29.9 pg (28.0-34.0) 01/27/23 20:57 MCHC 32.2 g/dL (30.0-36.0) 01/27/23 20:57 RDW 14.2 % (12.1-15.1) 01/27/23 20:57 Plt Count 415 10^3/cmm (130-400) H 01/27/23 20:57 MPV 8.7 fL (7.4-10.4) 01/27/23 20:57 Neut % (Auto) 55.4 % 01/27/23 20:57 Lymph % (Auto) 30.4 % 01/27/23 20:57 [place] % (Auto) 9.5 % 01/27/23 20:57 Eos % (Auto) 4.0 % 01/27/23 20:57 Baso % (Auto) 0.5 % 01/27/23 20:57 Neut # (Auto) 5.16 10^3/uL (1.8-7.7) 01/27/23 20:57 Lymph # (Auto) 2.8 10^3/uL (0.8-4.8) 01/27/23 20:57 Cross # (Auto) 0.9 10^3/uL (0.2-0.9) 01/27/23 20:57 Eos # (Auto) 0.4 10^3/uL (0.0-0.8) 01/27/23 20:57 Baso # (Auto) 0.1 10^3/uL (0.0-0.1) 01/27/23 20:57 Nucleated RBC % (auto) 0 % 01/27/23 20:57 Nucleated RBCs # 0.0 /100WBC 01/27/23 20:57 Sodium 137 mmol/L (136-145) 01/27/23 20:57 Potassium 4.6 mmol/L (3.5-5.1) 01/27/23 20:57 Chloride 104 mmol/L (98-107) 01/27/23 20:57 Carbon Dioxide 20 mmol/L (22-29) L 01/27/23 20:57 Anion Gap 17.6 (5-19) 01/27/23 20:57 BUN 18 mg/dL (6-20) 01/27/23 20:57 Creatinine 0.7 mg/dL (0.5-0.9) 01/27/23 20:57 GFR Calculation 98.3 mL/min (90-130) 01/27/23 20:57 Glucose 98 mg/dL (65-115) 01/27/23 20:57 Calculated Osmolality 286 mOsm/kg (285-295) 01/27/23 20:57 Calcium 8.7 mg/dL (8.5-10.5) 01/27/23 20:57 Magnesium 1.9 mg/dL (1.7-2.3) 01/27/23 20:57 Total Bilirubin 0.2 mg/dL (0.15-1.2) 01/27/23 20:57 AST 23 U/L (0-32) 01/27/23 20:57 ALT 79 U/L (0-33) H 01/27/23 20:57 Alkaline Phosphatase 120 U/L (35-105) H 01/27/23 20:57 NT-Pro-B Natriuret Pep 723 pg/mL (0-125) H 01/27/23 20:57 Total Protein 6.5 g/dL (6.6-8.7) L 01/27/23 20:57 Albumin 3.7 g/dL (3.5-5.2) 01/27/23 20:57 Globulin 2.8 g/dL (1.3-4.6) 01/27/23 20:57 Urine Color Colorless (Yellow) 01/27/23 21:03 Urine Appearance Clear (CLEAR) 01/27/23 21:03 Urine pH 7 (5-7) 01/27/23 21:03 Ur Specific [place] 1.010 (1.005-1.030) 01/27/23 21:03 Urine Protein Neg (Negative) 01/27/23 21:03 Urine Glucose (UA) Norm (Normal) 01/27/23 21:03 Urine Ketones 1+ (Negative) H 01/27/23 21:03 Urine Blood 2+ (Negative) H 01/27/23 21:03 Urine Nitrate Negative (Negative) 01/27/23 21:03 Urine Bilirubin Neg (Negative) 01/27/23 21:03 Urine Urobilinogen Norm mg/dL (Negative) 01/27/23 21:03 Ur Leukocyte Esterase Trace (Negative) H 01/27/23 21:03 Urine RBC 0-4 /hpf (0-2) H 01/27/23 21:03 Urine WBC 0-4 /hpf (0-5) H 01/27/23 21:03 Ur Squamous Epith Cells 0-4 /hpf (0-5) H 01/27/23 21:03 Amorphous Sediment Not Reportable 01/27/23 21:03 Urine Bacteria Trace /hpf (NONE) 01/27/23 21:03 Discharge Plan Discharge Patient Disposition: Home Clinical Impression: Pre-eclampsia in period Condition: Stable Prescriptions: No Action loratadine 10 mg PO DAILY Iron (ferrous sulfate) 325 mg (65 mg iron) Tablet 325 mg PO DAILY 1+1 W/Iron 1 tab PO DAILY labetalol 100 mg tablet 100 mg PO BID Qty: 30 0RF Discharge Orders: Discharge ED (Routine); Ordered 01/28/23 Ordered By: Doc Trujillo Referrals: Roz Browning DO [Primary Care Provider] - 1-3 days Patient Instructions: Preeclampsia During (ED) Activity Restrictions/Additional Instructions: Increase your dose of labetalol to 200 mg twice daily. You can take your next dose when you get home. Continue to check your blood pressures 3 times daily. Return for concerning blood pressures, symptoms of significant headache, any other concerning symptoms. Follow-up with Dr. Browning. Call her on Sunday. Coding Level of Care Code ED Health Safety Coordinator for Markel Jin
[2023-01-27 21:49] LABS: Anion Gap 17.6 (5-19); Aspartate Amino Transferase 23 U/L (0-32); Potassium 4.6 mmol/L (3.5-5.1)
[2023-01-27] MEDS: hyDRALAzine 20 mg/mL INJ 1 mL 10 MG IVP (22:17)
[2023-01-27 22:27] VITALS: BP 126/86; PULSE 99; RESP 16; O2SAT 97
[2023-01-28 00:51] VITALS: BP 120/97; PULSE 84; RESP 16; O2SAT 97
== END 2023-01-28 00:47 | disposition home or self-care (01) ==
PROVIDERS: Emergency Provider Emergency Medicine; PCP Family Medicine
DX: O14.95 Unspecified pre-eclampsia, complicating the puerperium (principal)
CPT/HCPCS: 36415; 80053; 81001; 83735; 83880; 85025; 93005; 96374; 96376; 99284; J0360

== ENCOUNTER → 2024-05-31 10:37 | Outpatient (BNVA) | payer BC, MEDICAID, SELFPAY | PROVIDERS: PCP Family Medicine; Visit Provider Emergency Medicine | DX: J02.9 Acute pharyngitis, unspecified (principal) | CPT/HCPCS: 87880 ==